=== PATIENT | female | born 1955 | race Caucasian/White ===

== ENCOUNTER 2017-07-21 10:41 | Day surgery (SDC) | payer MEDICAID ==
[~2017-07-21] VITALS: Ht 158.8 cm; Wt 65.8 kg
[~2017-07-21 10:41] MED LIST: AMIT75TA2 PO; ASPI-1159 PO; DICY20TA11 PO; FLUT16SP15 NS; GABA800T97 PO; INSLAN SQ; INSLIS SQ; LANS30CA55 PO; LISI-604 PO; LORA10TA7 PO; METF850T2 PO; METH-612 PO; MITOMYCIN 0.2 MG KIT OP NR; MORP15TA67 PO; NAPR-681 PO; OXYC-159 PO; RANI150C12 PO; SIMV20TA6 PO; SUCR1TAB PO
[2017-07-21 11:23] LABS: BASOPHILS % 0.4 % (0.0-2.0); EOSINOPHILS % 0.6 % (0.0-5.0); HEMOGLOBIN. 12.3 g/dL (12.0-16.0); LYMPHOCYTES % 35.1 % (20.0-50.0); MEAN CORPUSCULAR HEMOGLOBIN 27.4 pg (28.0-32.0); MEAN CORPUSCULAR VOLUME 82.2 fL (81.0-99.0); MEAN PLATELET VOLUME 9.3 fl (7.4-10.4); MONOCYTES % 9.4 % (2.0-8.0); NEUTROPHILS % 54.5 % (40.0-76.0); PLATELET 241 x1000/uL (130-400); RED CELL DISTRIBUTION WIDTH 14.3 % (11.6-14.6)
[2017-07-21] MEDS ORDERED: LACTATED RINGERS 1,000 ML IV SCH (11:25)
[2017-07-21 11:44] LABS: CHLORIDE 105 mEq/L (98-107)
[2017-07-21] MEDS ORDERED: GLYCOPYRROLATE 0.2 MG/ML 2ML VIAL ONE (12:17)
[2017-07-21] MEDS ORDERED: FENTANYL CITRATE/PF 50MCG/ML 2ML VIAL ONE (13:15)
[2017-07-21] MEDS ORDERED: LIDOCAINE HCL/PF 1% 10 MG/ML 5ML VIAL ONE (13:15)
[2017-07-21] MEDS ORDERED: MIDAZOLAM HCL 2 MG/2 ML VIAL ONE (13:15)
[2017-07-21] MEDS ORDERED: PROPOFOL 200MG/20ML VIAL IV ONE (13:15)
[2017-07-21] MEDS ORDERED: DOCU100T PO (14:02)
[2017-07-21] MEDS ORDERED: ESOM40CA PO (14:02)
[2017-07-21] MEDS ORDERED: LATA2.5D2 BOTHEYE (14:02)
[2017-07-21] MEDS ORDERED: BRIN8DRO BOTHEYE (14:02)
[2017-07-21] MEDS ORDERED: PREG75CA PO (14:02)
[2017-07-21] MEDS ORDERED: PRED10DR BOTHEYE (14:02)
[2017-07-21] MEDS ORDERED: NAPHADR BOTHEYE (14:02)
[2017-07-21] MEDS ORDERED: TIMO15DR12 BOTHEYE (14:02)
[2017-07-21] MEDS ORDERED: NEPA1.7D LEFTEYE (14:02)
[2017-07-21] MEDS ORDERED: INSU100I24 SQ (14:02)
[2017-07-21] MEDS ORDERED: TOLT4CAP PO (14:02)
[2017-07-21] MEDS ORDERED: KETO5DRO80 BOTHEYE (14:02)
[2017-07-21] MEDS ORDERED: SODIUM CHLORIDE 0.9% 1,000 ML IV ONE (14:05)
[2017-07-21] MEDS ORDERED: TRIAMCINOLONE ACETONIDE 40MG/ML 1ML VIAL ONE (14:06)
[2017-07-21] MEDS ORDERED: CEFAZOLIN SODIUM 1000MG/VIAL ONE (14:13)
[2017-07-21] MEDS ORDERED: HYDROMORPHONE HCL/PF 2MG/ML CPJ IV PRN (14:15)
[2017-07-21] MEDS ORDERED: ONDANSETRON HCL 4MG/2ML VIAL IV PRN (14:15)
[2017-07-21] MEDS ORDERED: BUPIVACAINE HCL/PF 0.75% (7.5MG/ML) 10ML ONE (16:42)
[2017-07-21] MEDS ORDERED: BALANCED SALT IRRIG SOLN 15ML ONE (16:42)
[2017-07-21] MEDS ORDERED: CIPROFLOXACIN 0.3% OPHTH SOLN 2.5ML ONE (16:42)
[2017-07-21] MEDS ORDERED: NEO/POLYMYX B SULF/DEXAMETH OPHTH OINT 3.5GM ONE (16:42)
[2017-07-21] MEDS ORDERED: LIDOCAINE HCL 2%/EPINEPHRINE 1:100,000 20 ML VIAL INFIL ONE (16:42)
[2017-07-21] MEDS ORDERED: LIDOCAINE HCL/PF 2% 20 MG/ML 10ML VIAL ONE (16:42)
[2017-07-21] MEDS ORDERED: ACETYLCHOLINE CHLORIDE INTRAOCULAR SOLUTION 1:100 ELECTROLYTE DILUENT IO ONE (16:42)
[2017-07-21] MEDS ORDERED: PREDNISOLONE ACETATE 1% OPHTH DROPS 1ML ONE (16:42)
[2017-07-21] MEDS ORDERED: TETRACAINE 0.5% OPHTH DROPS 4ML ONE (16:42)
== END 2017-07-21 15:30 | disposition home or self-care (01) ==
LOC: OR 10:41
PROVIDERS: ATTEND Ophthalmology
DX: H40.89 Other specified glaucoma (principal); Z79.82 Long term (current) use of aspirin; Z79.899 Other long term (current) drug therapy; E11.9 Type 2 diabetes mellitus without complications; G47.33 Obstructive sleep apnea (adult) (pediatric); K21.9 Gastro-esophageal reflux disease without esophagitis; I10 Essential (primary) hypertension; Z79.4 Long term (current) use of insulin
CPT/HCPCS: 36415; 66170; 80048; 82962; 85025; J0690; J2250; J3010; J3301; J3490; J7120; J2704

== ENCOUNTER 2017-07-28 07:54 | Day surgery (SDC) | payer MEDICAID ==
[~2017-07-28] VITALS: Ht 158.8 cm; Wt 65.8 kg
[~2017-07-28 07:54] MED LIST changes: +BRIN8DRO BOTHEYE; +DOCU100T PO; +ESOM40CA PO; +INSU100I24 SQ; +KETO5DRO80 BOTHEYE; +LATA2.5D2 BOTHEYE; -MITOMYCIN 0.2 MG KIT OP NR; +NAPHADR BOTHEYE; +NEPA1.7D LEFTEYE; +PRED10DR BOTHEYE; +PREG75CA PO; +TIMO15DR12 BOTHEYE; +TOLT4CAP PO
[2017-07-28] MEDS ORDERED: LACTATED RINGERS 1,000 ML IV SCH (08:45)
[2017-07-28] MEDS ORDERED: MITOMYCIN 0.2 MG KIT OP ONE (09:15)
[2017-07-28] MEDS ORDERED: SODIUM CHLORIDE 0.9% 1,000 ML IV ONE (10:47)
[2017-07-28] MEDS ORDERED: ONDANSETRON HCL 4MG/2ML VIAL IV PRN (11:00)
[2017-07-28] MEDS ORDERED: BUPIVACAINE HCL/PF 0.75% (7.5MG/ML) 10ML ONE (15:00)
[2017-07-28] MEDS ORDERED: CIPROFLOXACIN 0.3% OPHTH SOLN 2.5ML ONE (15:00)
[2017-07-28] MEDS ORDERED: ACETYLCHOLINE CHLORIDE INTRAOCULAR SOLUTION 1:100 ELECTROLYTE DILUENT IO ONE (15:00)
[2017-07-28] MEDS ORDERED: NEO/POLYMYX B SULF/DEXAMETH OPHTH OINT 3.5GM ONE (15:00)
[2017-07-28] MEDS ORDERED: BALANCED SALT IRRIG SOLN 15ML ONE (15:00)
[2017-07-28] MEDS ORDERED: TETRACAINE 0.5% OPHTH DROPS 4ML ONE (15:00)
[2017-07-28] MEDS ORDERED: PREDNISOLONE ACETATE 1% OPHTH DROPS 1ML ONE (15:00)
[2017-07-28] MEDS ORDERED: LIDOCAINE HCL 2%/EPINEPHRINE 1:100,000 20 ML VIAL INFIL ONE (15:00)
== END 2017-07-28 12:00 | disposition home or self-care (01) ==
LOC: OR 07:54
PROVIDERS: ATTEND Ophthalmology
DX: H40.89 Other specified glaucoma (principal); K21.9 Gastro-esophageal reflux disease without esophagitis; I10 Essential (primary) hypertension; E11.9 Type 2 diabetes mellitus without complications; G47.33 Obstructive sleep apnea (adult) (pediatric); Z79.4 Long term (current) use of insulin; Z79.82 Long term (current) use of aspirin; Z79.899 Other long term (current) drug therapy
CPT/HCPCS: 66170; 82962; J3490; J7120; J9280